=== PATIENT | male | born 1955 | race Caucasian/White ===

== ENCOUNTER 2023-01-16 12:09 | Emergency (ER) | payer BC, OTHER ==
[~2023-01-16] VITALS: Ht 182.9 cm; Wt 0.9 kg
[~2023-01-16 12:09] MED LIST: CLON-371 PO; DIPH1TAB PO; FLUO20CA39 PO; HYDR-4353 PO; RIZA-5 PO
[2023-01-16 12:13] VITALS: BP 130/86
--- NOTE | 2023-01-16 14:02 | NUR ---
SPOKE WITH [facility] REGARD[facility]RA[facility].
== END 2023-01-16 14:39 | disposition home or self-care (01) ==
LOC: ER 12:10
DX: M25.551 Pain in right hip (principal); W01.0XXA Fall on same level from slipping, tripping and stumbling without subsequent striking against object, initial encounter; Y93.89 Activity, other specified; Y92.89 Other specified places as the place of occurrence of the external cause; Y99.8 Other external cause status
CPT/HCPCS: 73502; 73564; 99284